=== PATIENT | male | born 1965 | race African-American/Black ===

== ENCOUNTER 2020-03-31 01:31 | Emergency (ER) | payer BC ==
[2020-03-31] MEDS ORDERED: KETOROLAC 30 MG/ML INJ ONE (02:21)
[2020-03-31 03:00] LABS: Absolute Lymphocytes (CBC) 1.1 K/uL (0.7-4.9); Basophils % 0.9 % (0-1.3); Hematocrit 42.1 % (39.6-49.0); MPV 10.4 fL (7.6-11.3); RBC Red Blood Cell Count 4.82 M/uL (4.33-5.43)
[2020-03-31 03:08] LABS: ALT/SGPT 36 U/L (12-78); AST/SGOT 24 U/L (15-37); Albumin 3.8 g/dL (3.4-5.0); Alkaline Phosphatase 82 U/L (45-117); BUN Blood Urea Nitrogen 15 mg/dL (7-18); Bicarbonate 26 mmol/L (21-32); Bilirubin Direct 0.1 mg/dL (0-0.2); Bilirubin Total 0.3 mg/dL (0.2-1.0); Glucose Level 110 mg/dL (74-106); NT PRO-BNP 18 pg/mL (<125); Protein, Total 7.9 g/dL (6.4-8.2); Sodium Level 136 mmol/L (136-145); Troponin (Emerg Dept Use Only) < 0.02 ng/mL (0.0-0.045)
--- NOTE | 2020-03-31 05:26 | ER ---
Nurse's Notes [facility] Name: Jaskaran Rivera Age: 54 yrs Sex: Male : 1965 Arrival Date: 03/31/2020 Time: 01:33 Bed 17 Private MD: Diagnosis: Other chest pain Presentation: 03/31 01:35 Chief complaint: EMS states: right shoulder pain started 20 minutes before we arrived. rr5 he took tylenol, not relieved from the pain it got worst. the pain shifted from right shoulder to right rib cage and now in his diaphragm when breathing. no nausea/ vomiting, no diaphoresis. NSR on ECG. 01:35 Coronavirus screen: Proceed with normal triage. Ebola Screen: Patient negative for rr5 fever greater than or equal to 101.5 degrees Fahrenheit, and additional compatible Ebola Virus Disease symptoms Patient denies exposure to infectious person. Patient denies travel to an Ebola-affected area in the 21 days before illness onset. Initial Sepsis Screen: Does the patient meet any 2 criteria? No. Patient's initial sepsis screen is negative. Does the patient have a suspected source of infection? No. Patient's initial sepsis screen is negative. Risk Assessment: Do you want to hurt yourself or someone else? Patient reports no desire to harm self or others. Onset of symptoms was March 31, 2020 at 00:25. 01:35 Method Of Arrival: EMS: [facility] rr5 01:35 Acuity: HELLEN 3 rr5 Historical: - Allergies: 01:50 No Known Allergies; rr5 - Home Meds: 01:50 None [Active]; rr5 - PMHx: 01:50 None; rr5 - PSHx: 01:50 None; rr5 - Immunization history:: Adult Immunizations up to date. - Social history:: Smoking status: unknown Patient/guardian denies using alcohol, street drugs. Screenin:12 Abuse screen: Denies threats or abuse. Denies injuries from another. Nutritional rr5 screening: No deficits noted. Tuberculosis screening: No symptoms or risk factors identified. Fall Risk IV access (20 points). Total Dean Fall Scale indicates No Risk (0-24 pts). Assessment: 01:50 General: Appears in no apparent distress. uncomfortable, Behavior is calm, cooperative, rr5 appropriate for age. 01:50 Pain: Complains of pain in right shoulder, right rib cage and diaphragm Pain currently rr5 is 10 out of 10 on a pain scale. Quality of pain is described as aching, Pain began suddenly, Is intermittent. Neuro: Level of Consciousness is awake, alert, obeys commands, Oriented to person, place, time, situation, Appropriate for age. Cardiovascular: Reports right rib cage pain Capillary refill < 3 seconds Patient's skin is warm and dry. Respiratory: Reports pain with respiration since 0025H today Airway is patent Respiratory effort is even, unlabored, Respiratory pattern is regular, symmetrical. GI: No signs and/or symptoms were reported involving the gastrointestinal system. : No signs and/or symptoms were reported regarding the genitourinary system. EENT: No signs and/or symptoms were reported regarding the EENT system. Derm: Skin is intact, is healthy with good turgor, Skin temperature is warm. Musculoskeletal: Circulation, motion, and sensation intact. Capillary refill < 3 seconds. 02:50 Reassessment: Patient appears in no apparent distress at this time. Patient is alert, rr5 oriented x 3, equal unlabored respirations, skin warm/dry/pink. 03:35 Reassessment: Patient appears in no apparent distress at this time. Patient is alert, rr5 oriented x 3, equal unlabored respirations, skin warm/dry/pink. came back from CT scan awaiting for results. 04:04 Reassessment: Patient appears in no apparent distress at this time. Patient is alert, rr5 oriented x 3, equal unlabored respirations, skin warm/dry/pink. Patient states symptoms have improved. Pain: Pain currently is 2 out of 10 on a pain scale. 04:20 Reassessment: Patient appears in no apparent distress at this time. awaiting for CT rr5 result. 05:33 Reassessment: Patient appears in no apparent distress at this time. Patient is alert, rr5 oriented x 3, equal unlabored respirations, skin warm/dry/pink. discharge instruction given and explained without complaints made. Patient states symptoms have improved. Vital Signs: 01:35 BP 147 / 62; Pulse 61; Resp 19; Temp 98.5; Pulse Ox 100% ; Weight 140.61 kg; Height 5 rr5 ft. 10 in. (177.80 cm); Pain 10/; 03:00 BP 135 / 85; Pulse 65; Resp 19; Pulse Ox 100% ; rr5 04:00 BP 145 / 70; Pulse 62; Resp 16; Pulse Ox 99% ; Pain 2/10; rr5 05:10 BP 141 / 62; Pulse 63; Resp 18; Pulse Ox 99% on R/A; rr5 01:35 Body Mass Index 44.48 (140.61 kg, 177.80 cm) rr5 ED Course: 01:33 Patient arrived in ED. ds1 01:36 Brady Pool MD is Attending Physician. tw4 01:38 Garo Cloud, PRACHI is Primary Nurse. rr5 01:42 Triage completed. rr5 01:49 EKG done, by ED staff, reviewed by Brady Pool MD. ds4 01:50 Arm band placed on right wrist. rr5 01:50 EKG completed in triage. Results shown to MD. rr5 01:50 Patient has correct armband on for positive identification. Placed in gown. Bed in low rr5 position. Call light in reach. Side rails up X2. media monitor on. Pulse ox on. NIBP on. 02:10 Missed attempt(s): 20 gauge in right forearm. Bleeding controlled, band aid applied, rr5 catheter tip intact. 02:10 Initial lab(s) drawn, by me, sent to lab. rr5 02:14 XRAY Chest (1 view) In Process Unspecified. EDMS 02:27 Inserted saline lock: 22 gauge in left forearm, using aseptic technique. rr5 03:53 CT Chest For PE Angio In Process Unspecified. EDMS 04:35 Repeat lab(s) drawn. by me, sent to lab. rr5 04:35 No provider procedures requiring assistance completed. rr5 05:25 Chintan Hernandez MD is Referral Physician. tw4 05:25 Daniel Doss MD is Referral Physician. tw4 05:33 IV discontinued, intact, bleeding controlled, No redness/swelling at site. Pressure rr5 dressing applied. Administered Medications: 02:27 Drug: TORadol 30 mg Route: IVP; Site: left forearm; rr5 03:30 Follow up: Response: No adverse reaction; Pain is decreased rr5 05:30 Drug: Aspirin Chewable Tablet 324 mg Route: PO; rr5 05:38 Follow up: Response: Medication administered at discharge. rr5 Outcome: 05:25 Discharge ordered by . tw4 05:33 Discharged to home ambulatory. rr5 05:33 Condition: stable 05:33 Discharge instructions given to patient, Instructed on discharge instructions, follow up and referral plans. Demonstrated understanding of instructions, follow-up care. 05:39 Patient left the ED. rr5 Signatures: Dispatcher [employer] EDLinette Rosario ds1 Omkar Ortiz ds4 Brady Pool MD MD tw4 Garo Cloud, RN RN rr5 Corrections: (The following items were deleted from the chart) 02:12 01:35 Pulse 61bpm; Resp 19bpm; Pulse Ox 100%; Temp 98.5F; 140.61 kg; Height 5 ft. 10 rr5 in.; BMI: 44.4; Pain 09/06; rr5
--- NOTE | 2020-03-31 05:26 | EDPHYS ---
Physician Documentation [facility] Name: Jaskaran Rivera Age: 54 yrs Sex: Male : 1965 Arrival Date: 03/31/2020 Time: 01:33 Bed 17 Private MD: ED Physician Brady Pool HPI: 03/31 04:39 This 54 yrs old Black Male presents to ER via EMS with complaints of Chest Pain. tw4 04:39 The patient or guardian reports chest pain that is located primarily in the substernal tw4 area. Onset: today. The pain does not radiate. Associated signs and symptoms: The patient has no apparent associated signs or symptoms. The chest pain is described as sharp. Duration: The patient or guardian reports multiple episodes, that wax and wane. Modifying factors: The symptoms are alleviated by remaining still, the symptoms are aggravated by breathing, deep breath. Severity of pain: At its worst the pain was mild in the emergency department the pain is unchanged. The patient has not experienced similar symptoms in the past. Historical: - Allergies: 01:50 No Known Allergies; rr5 - Home Meds: 01:50 None [Active]; rr5 - PMHx: 01:50 None; rr5 - PSHx: 01:50 None; rr5 - Immunization history:: Adult Immunizations up to date. - Social history:: Smoking status: unknown Patient/guardian denies using alcohol, street drugs. ROS: 04:39 Constitutional: Negative for fever, chills, and weight loss, Eyes: Negative for injury, tw4 pain, redness, and discharge, Respiratory: Negative for shortness of breath, cough, wheezing, and pleuritic chest pain, Abdomen/GI: Negative for abdominal pain, nausea, vomiting, diarrhea, and constipation, Back: Negative for injury and pain, MS/Extremity: Negative for injury and deformity, Skin: Negative for injury, rash, and discoloration, Neuro: Negative for headache, weakness, numbness, tingling, and seizure. 04:39 Cardiovascular: Positive for chest pain, Negative for edema, orthopnea, palpitations, paroxysmal nocturnal dyspnea. Exam: 04:39 Constitutional: This is a well developed, well nourished patient who is awake, alert, tw4 and in no acute distress. Head/Face: Normocephalic, atraumatic. Chest/axilla: Normal chest wall appearance and motion. Nontender with no deformity. No lesions are appreciated. Cardiovascular: Regular rate and rhythm with a normal S1 and S2. No gallops, murmurs, or rubs. Normal PMI, no JVD. No pulse deficits. Respiratory: Lungs have equal breath sounds bilaterally, clear to auscultation and percussion. No rales, rhonchi or wheezes noted. No increased work of breathing, no retractions or nasal flaring. Abdomen/GI: Soft, non-tender, with normal bowel sounds. No distension or tympany. No guarding or rebound. No evidence of tenderness throughout. Back: No spinal tenderness. No costovertebral tenderness. Full range of motion. MS/ Extremity: Pulses equal, no cyanosis. Neurovascular intact. Full, normal range of motion. Neuro: Awake and alert, GCS 15, oriented to person, place, time, and situation. Cranial nerves II-XII grossly intact. Motor strength 5/5 in all extremities. Sensory grossly intact. Cerebellar exam normal. Normal gait. Vital Signs: 01:35 BP 147 / 62; Pulse 61; Resp 19; Temp 98.5; Pulse Ox 100% ; Weight 140.61 kg; Height 5 rr5 ft. 10 in. (177.80 cm); Pain 10/10; 03:00 BP 135 / 85; Pulse 65; Resp 19; Pulse Ox 100% ; rr5 04:00 BP 145 / 70; Pulse 62; Resp 16; Pulse Ox 99% ; Pain 2/10; rr5 05:10 BP 141 / 62; Pulse 63; Resp 18; Pulse Ox 99% on R/A; rr5 01:35 Body Mass Index 44.48 (140.61 kg, 177.80 cm) rr5 MDM: 01:34 Patient medically screened. tw4 04:39 Differential diagnosis: abnormal EKG, acute myocardial infarction, pulmonary embolus, tw4 thoracic aortic disection. Data reviewed: vital signs, nurses notes. Data reviewed: lab test result(s), cardiac enzymes, CBC, hepatic panel, EKG, radiologic studies, CT scan, plain films. Data interpreted: Pulse oximetry: Interpretation: normal. Test interpretation: by ED physician or midlevel provider: plain radiologic studies. Counseling: I had a detailed discussion with the patient and/or guardian regarding: the historical points, exam findings, and any diagnostic results supporting the discharge/admit diagnosis. 05:21 The patient was given aspirin in the Emergency Department. Special discussion: Based on the patient's history, exam, and Dx evaluation, there is no indication for emergent intervention or inpatient Tx. It is understood by the patient/guardian that if the Sx's persist or worsen they need to return immediately for re-evaluation. I discussed with the patient/guardian in detail that at this point there is no indication for admission to the hospital. It is understood, however, that if the symptoms persist or worsen the patient needs to return immediately for re-evaluation. ED course: CT chest was negative for PE. pt had two sets of troponin's that were negative. pt pain was atypical and have given patient instruction regarding chest pain and to followup with PCP. 03/31 01:35 Order name: Basic Metabolic Panel; Complete Time: 04:02 03/31 04:02 Interpretation: Normal except: GLUC 110; GFR 86. 03/31 01:35 Order name: CBC with Diff; Complete Time: 04:02 03/31 04:02 Interpretation: Normal except: JAMES% 77.8; LYM% 13.0. 03/31 01:35 Order name: LFT's; Complete Time: 04:02 03/31 04:02 Interpretation: Normal except: GLOB 4.1; A/G 0.9. 03/31 01:35 Order name: Magnesium; Complete Time: 04:02 03/31 04:02 Interpretation: Within normal limits: MG 2.0. 03/31 01:35 Order name: NT PRO-BNP; Complete Time: 04:02 03/31 04:04 Interpretation: Within normal limits: NT PRO-BNP 18. 03/31 01:35 Order name: PT-INR; Complete Time: 04:02 03/31 01:35 Order name: Troponin (emerg Dept Use Only); Complete Time: 04:02 03/31 04:04 Interpretation: Within normal limits: TROPED < 0.02. 03/31 01:35 Order name: XRAY Chest (1 view) 03/31 01:35 Order name: EKG; Complete Time: 01:36 03/31 01:35 Order name: Cardiac monitoring; Complete Time: 01:49 03/31 03:05 Order name: CT Chest For PE Angio 03/31 04:05 Order name: Troponin (emerg Dept Use Only); Complete Time: 05:30 03/31 05:30 Interpretation: Within normal limits. 03/31 01:35 Order name: EKG - Nurse/Tech; Complete Time: 01:49 03/31 01:35 Order name: IV Saline Lock; Complete Time: 02:29 03/31 01:35 Order name: Labs collected and sent; Complete Time: 02:11 03/31 01:35 Order name: O2 Per Protocol; Complete Time: :49 03/31 01:35 Order name: O2 Sat Monitoring; Complete Time: :49 Administered Medications: 02:27 Drug: TORadol 30 mg Route: IVP; Site: left forearm; rr5 03:30 Follow up: Response: No adverse reaction; Pain is decreased rr5 05:30 Drug: Aspirin Chewable Tablet 324 mg Route: PO; rr5 05:38 Follow up: Response: Medication administered at discharge. rr5 Disposition: 03/31/20 05:25 Discharged to Home. Impression: Other chest pain. - Condition is Stable. - Discharge Instructions: Nonspecific Chest Pain. - Medication Reconciliation Form, Thank You Letter, Antibiotic Education, Prescription Opioid Use form. - Follow up: Chintan Hernandez MD; When: 1 week; Reason: Recheck today's complaints, Continuance of care, Re-evaluation by your physician. Follow up: Daniel Doss MD; When: 1 week; Reason: Recheck today's complaints, Continuance of care, Re-evaluation by your physician. - Problem is new. - Symptoms have improved. Signatures: Dispatcher [employer] Brady Cheng MD MD tw4 Garo Cloud RN RN rr5 Corrections: (The following items were deleted from the chart) 05:39 05:25 03/31/2020 05:25 Discharged to Home. Impression: Other chest pain. Condition is rr5 Stable. Forms are Medication Reconciliation Form, Thank You Letter, Antibiotic Education, Prescription Opioid Use. Follow up: Chintan Hernandez; When: 1 week; Reason: Recheck today's complaints, Continuance of care, Re-evaluation by your physician. Follow up: Daniel Doss; When: 1 week; Reason: Recheck today's complaints, Continuance of care, Re-evaluation by your physician. Problem is new. Symptoms have improved. tw4
[2020-03-31] MEDS ORDERED: ASPIRIN 81 MG CHEWABLE TABLET ONE (05:41)
[2020-03-31 05:49] VITALS: TEMP 98.5
[2020-03-31 05:50] VITALS: O2SAT 99
[2020-03-31 05:52] VITALS: BP 141/62
--- NOTE | 2020-03-31 08:28 | RAD REPORT ---
EXAM DESCRIPTION: Adithya Single View03/31/2020 2:14 am CLINICAL HISTORY: Chest pain COMPARISON: February 2019 FINDINGS: The lungs appear clear of acute infiltrate. The heart is mildly enlarged IMPRESSION: No acute abnormalities displayed
--- NOTE | 2020-03-31 10:49 | EKG ---
Test Date: 2020-03-31 Test Time: 01:45:48 Embossing Machine Operator: JAVIER MEASUREMENT RESULTS: Intervals: Rate: 66 MN: 170 QRSD: 90 QT: 416 QTc: 436 Addy: P: 25 MN: 170 QRS: 22 T: -3 INTERPRETIVE STATEMENTS: Normal sinus rhythm Nonspecific T wave abnormality Abnormal ECG Compared to ECG 05/11/2004 10:07:00 T-wave abnormality now present Sinus bradycardia no longer present Electronically Signed On 03-31-20 10:48:58 CDT by Chintan Hernandez
--- NOTE | 2020-03-31 10:58 | RAD REPORT ---
EXAM DESCRIPTION: CT - Chest For Pe Angio - 03/31/2020 5:33 am CLINICAL HISTORY: 54-year-old male with right shoulder pain and chest pain. TECHNIQUE: Following the administration of intravenous contrast, multiple high-resolution axial images of the ch est were performed followed by sagittal and coronal reconstructed images. The CT study is performed a ccording to ALARA (as low as reasonably achievable) or ALARA/IMAGE GENTLY, with automatic adjustment of mA and/or kV according to patient size. Performed on: 03/31/2020 at 3:41 AM COMPARISON: None FINDINGS: There is satisfactory visualization and contrast opacification of pulmonary arteries. No definite intra-arterial filling defects are identified to suggest acute or chronic pulmonary embolis m. The thoracic aorta is normal in caliber and contour without evidence of aneurysm or dissection. The lungs are well expanded. There is minimal left basilar dependent atelectasis. There is no evidenc e of a pneumothorax. There are no pleural effusions. The heart is top normal in size. There is no pericardial effusion. There is no evidence of hilar, mediastinal or axillary lymphadenopathy. No acute osseous abnormality is identified. The visualized upper abdominal structures are unremarkable. Incidentally noted is bilateral gynecomastia. IMPRESSION: 1. No CT evidence to suggest acute or chronic pulmonary embolism, aortic aneurysm or aortic dissectio n. 2. Minimal left basilar dependent atelectasis. 3. Borderline cardiomegaly. 4. Incidentally noted is bilateral gynecomastia. Electronically signed by: Darya Velez DO 03/31/2020 4:04 AM CDT Due to temporary technical issues with the PACS/Fluency reporting system, reports are being signed by the in house radiologist as a courtesy to ensure prompt reporting. The interpreting radiologist is f ully responsible for the content of the report.
== END 2020-03-31 05:39 | disposition home or self-care (01) ==
LOC: ER 01:31
DX: R07.89 Other chest pain (principal)
CPT/HCPCS: 93005; 85025; 80048; 36415; 83735; 85610; 80076; 84484 ×2; 83880; 71275; 71045; Q9967; 96374; 99285